=== PATIENT | male | born 1980 | race American Indian/Alaskan Native ===

== ENCOUNTER 2017-06-20 09:54 | Emergency (ER) | payer OTHER ==
[2017-06-20 10:12] VITALS: BP 129/75
[2017-06-20] MEDS ORDERED: MOTRIN PO ONE (11:12)
--- NOTE | 2017-06-20 11:19 | Emergency Department Report ---
ED Lower Extremity HPI - General Chief Complaint: Extremity Injury, Lower Stated Complaint: RIGHT LOWER LEG PAIN Time Seen by Provider: 06/20/17 11:12 Source: patient Mode of arrival: Ambulatory Limitations: No Limitations - History of Present Illness Initial Comments: This is a 36-year-old male nontoxic, well nourished in appearance, no acute signs of distress presents to the ED with c/o of right ankle pain 4 days. Patient state he was walking up the stairs and believes he twisted ankle and heard a popping sensation and believes that his Achilles tendon has been injured. Patient denies any decreased range of motion, joint swelling, fever, chills, nausea, vomiting, headache or stiff neck. Patient denies any chest pain or shortness of breath. Patient denies any allergies or significant past medical history. MD Complaint: ankle injury -: days(s) (4) Injury: Ankle: Right Type of Injury: inversion Place: street/outdoors Severity: mild Severity scale (0 -10): 8 Improves With: immobilization Worsens With: movement, palpation Associated Symptoms: able to partially bear weight, ambulatory. denies: snap/ pop sensation, swelling, numbness, tingling, unable to bear weight - Related Data Previous Rx's Medication Instructions Recorded Last Taken Type Ibuprofen [Motrin] 600 mg PO Q8H PRN #30 tablet 06/20/17 Unknown Rx Allergies Allergy/AdvReac Type Severity Reaction Status Date / Time No Known Allergies Allergy Unverified 06/20/17 10:09 ED Review of Systems ROS: Stated complaint: RIGHT LOWER LEG PAIN Other details as noted in HPI Constitutional: denies: chills, fever Eyes: denies: eye pain, eye discharge, vision change ENT: denies: ear pain, throat pain Respiratory: denies: cough, shortness of breath, wheezing Cardiovascular: denies: chest pain, palpitations Endocrine: no symptoms reported Gastrointestinal: denies: abdominal pain, nausea, diarrhea Genitourinary: denies: urgency, dysuria Musculoskeletal: arthralgia. denies: back pain, joint swelling Skin: denies: rash, lesions Neurological: denies: headache, weakness, paresthesias Psychiatric: denies: anxiety, depression Hematological/Lymphatic: denies: easy bleeding, easy bruising ED Past Medical Hx - Past Medical History Previous Medical History?: No - Surgical History Past Surgical History?: Yes Hx Appendectomy: Yes Additional Surgical History: Left knee surgery, Fatty tumors removed from head - Social History Smoking Status: Never Smoker Substance Use Type: Alcohol - Medications Home Medications: Home Medications Medication Instructions Recorded Confirmed Last Taken Type Ibuprofen [Motrin] 600 mg PO Q8H PRN #30 tablet 06/20/17 Unknown Rx ED Physical Exam - General Limitations: No Limitations General appearance: alert, in no apparent distress - Head Head exam: Present: atraumatic, normocephalic - Eye Eye exam: Present: normal appearance Pupils: Present: normal accommodation - ENT ENT exam: Present: normal exam, mucous membranes moist - Neck Neck exam: Present: normal inspection, full ROM - Respiratory Respiratory exam: Present: normal lung sounds bilaterally. Absent: respiratory distress, wheezes, rales, rhonchi, stridor - Cardiovascular Cardiovascular Exam: Present: regular rate, normal rhythm, normal heart sounds. Absent: bradycardia, tachycardia, irregular rhythm, systolic murmur, diastolic murmur, rubs, gallop - GI/Abdominal GI/Abdominal exam: Present: soft, normal bowel sounds - Rectal Rectal exam: Present: deferred - Extremities Exam Extremities exam: Present: normal inspection, full ROM, tenderness, normal capillary refill. Absent: pedal edema, joint swelling, calf tenderness - Expanded Lower Extremity Exam Right Hip exam: Present: normal inspection, full ROM Upper Leg exam: Present: normal inspection, full ROM Knee exam: Present: normal inspection, full ROM, full knee extension Lower Leg exam: Present: normal inspection, full ROM. Absent: Janett's sign Ankle exam: Present: normal inspection, full ROM, tenderness. Absent: swelling , abrasion, laceration, ecchymosis, deformity, crepidus, dislocation, erythema, anterior draw sign Foot/Toe exam: Present: normal inspection, full ROM. Absent: tenderness, swelling, abrasion, laceration, ecchymosis, deformity, crepidus, dislocation, erythema, amputation, puncture wound, foreign body, calcaneal tenderness, tenderness at base of 5th metatarsal, nail avulsion, subungual hematoma Neuro vascular tendon exam: Present: no vascular compromise. Absent: pulse deficit, abnormal cap refill, motor deficit, sensory deficit, tendon deficit, extremity cold to touch, pallor, abnormal 2-point discrimination, decreased fine /light touch, foot drop, peroneal nerve deficit, significant pain with passive ROM of distal joint Gait: Positive: observed and limited by pain - Back Exam Back exam: Present: normal inspection, full ROM - Neurological Exam Neurological exam: Present: alert, oriented X3, normal gait - Psychiatric Psychiatric exam: Present: normal affect, normal mood - Skin Skin exam: Present: warm, dry, intact, normal color. Absent: rash - Other Other exam information: Negative Philippe test. ED Course Vital Signs 06/20/17 10:09 Temperature 97.8 F Pulse Rate 68 Respiratory 18 Rate Blood Pressure 129/75 O2 Sat by Pulse 97 Oximetry - Reevaluation(s) Reevaluation #1: 06/20/17 11:16 Patient is speaking in full sentences with no signs of distress noted. ED Lower Extremity MDM - Medical Decision Making This is a 36-year-old male that presents with left ankle sprain. Patient is stable and was examined by me. Negative Philippe test. Normal range of motion. Upon examination there is no indication of Achilles tendon injury. An x-ray has been obtained and dictated by the radiologist. Patient is notified of the x-ray report with no questions noted by the patient. Patient received ankle stirrup and crutches. Crutches has been educated by RN headache use it. Patient also received Motrin in the ED. Patient was educated on rice therapy. Patient was referred to Follow-up with a orthopedic doctor in 3-5 days or if symptoms worsen and continue return to emergency room as soon as possible. At time of discharge, the patient does not seem toxic or ill in appearance. No acute signs of distress noted. Patient agrees to discharge treatment plan of care. No further questions noted by the patient. Critical care attestation.: If time is entered above; I have spent that time in minutes in the direct care of this critically ill patient, excluding procedure time. ED Disposition Clinical Impression: Right ankle sprain Qualifiers: Encounter type: initial encounter Involved ligament of ankle: unspecified ligament Qualified Code(s): S93.401A - Sprain of unspecified ligament of right ankle, initial encounter Disposition: TO HOME OR SELFCARE Is pt being admited?: No Does the pt Need Aspirin: No Condition: Stable Instructions: Ankle Sprain (ED), Ankle Stirrup Splint (ED), Crutch Instructions (ED), RICE Therapy (ED), Ibuprofen (By mouth) Additional Instructions: Follow-up with a orthopedic doctor in 3-5 days or if symptoms worsen and continue return to emergency room as soon as possible. Prescriptions: Ibuprofen [Motrin] 600 mg PO Q8H PRN #30 tablet PRN Reason: Pain Referrals: PRIMARY CARE, [Primary Care Provider] - 3-5 Days MINERVA SOLER MD [Staff Physician] - 3-5 Days [facility] [Outside] - 3-5 Days [facility] [Outside] - 3-5 Days Forms: Work/School Release Form(ED)
--- NOTE | 2017-06-20 11:46 | XRay Report ---
RIGHT ANKLE, 3 views: History: right ankle pain. Bone mineralization is normal. No acute osseous abnormality or joint pathology is identified. The soft tissues are unremarkable. IMPRESSION: No acute injury appreciated.
== END 2017-06-20 12:12 | disposition home or self-care (01) ==
LOC: ED 09:54
DX: S93.401A Sprain of unspecified ligament of right ankle, initial encounter (principal); X58.XXXA Exposure to other specified factors, initial encounter; Y93.89 Activity, other specified; Y92.89 Other specified places as the place of occurrence of the external cause; Y99.8 Other external cause status
CPT/HCPCS: 99283

== ENCOUNTER 2017-07-03 07:36 | Emergency (ER) | payer MEDICARE, OTHER ==
--- NOTE | 2017-07-03 10:30 | Emergency Department Report ---
ED Lower Extremity HPI - General Chief Complaint: Extremity Injury, Lower Stated Complaint: LEFT FOOT PAIN Time Seen by Provider: 07/03/17 08:09 Source: patient Mode of arrival: Ambulatory Limitations: No Limitations - History of Present Illness Initial Comments: Patient reports that he injured his left foot and ankle while he was walking that he twisted 5 days ago. He said his ankle is swollen and even though the swelling is reduced in if still painful and now his left foot is swollen. Patient said his foot is broken and he just knows it. Pain is 7 out of 10 achy and worse with walking or movement better with resting. He said he took Motrin for pain but it didn't help and he needs something stronger. Denies any numbness or tingling to her extremities. Denies any fall MD Complaint: ankle injury, foot injury Onset/Timin -: days(s) Injury: Ankle: Left (pain and swelling from injury), Foot: Left (pain and swelling from injury) Type of Injury: inversion Place: street/outdoors Severity: severe Severity scale (0 -10): 7 Improves With: NSAID Worsens With: weight bearing, movement, palpation Context: walking Associated Symptoms: swelling, ambulatory. denies: snap/pop sensation, numbness , tingling Treatments Prior to Arrival: NSAIDS - Related Data Previous Rx's Medication Instructions Recorded Last Taken Type Acetaminophen/Codeine [Tylenol 1 tab PO Q6H PRN #12 tab 07/03/17 Unknown Rx /Codeine # 3 tab] Ibuprofen [Motrin 600 MG tab] 600 mg PO Q8H PRN #15 tablet 07/03/17 Unknown Rx Allergies Allergy/AdvReac Type Severity Reaction Status Date / Time No Known Allergies Allergy Verified 07/03/17 07:46 ED Review of Systems ROS: Stated complaint: LEFT FOOT PAIN Other details as noted in HPI Comment: All other systems reviewed and negative Constitutional: no symptoms reported Respiratory: no symptoms reported Cardiovascular: denies: chest pain, palpitations, dyspnea on exertion, edema, syncope, paroxysmal nocturnal dyspnea Gastrointestinal: denies: abdominal pain, nausea, vomiting, diarrhea, constipation Musculoskeletal: joint swelling, arthralgia. denies: back pain, myalgia Skin: denies: rash Neurological: denies: headache, numbness, paresthesias, confusion, abnormal gait , vertigo ED Past Medical Hx - Past Medical History Previous Medical History?: No - Surgical History Past Surgical History?: Yes Hx Appendectomy: Yes Additional Surgical History: Left knee surgery, Fatty tumors removed from head - Family History Family history: hypertension - Social History Smoking Status: Never Smoker Substance Use Type: None - Medications Home Medications: Home Medications Medication Instructions Recorded Confirmed Last Taken Type Acetaminophen/Codeine [Tylenol 1 tab PO Q6H PRN #12 tab 07/03/17 Unknown Rx /Codeine # 3 tab] Ibuprofen [Motrin 600 MG tab] 600 mg PO Q8H PRN #15 tablet 07/03/17 Unknown Rx ED Physical Exam - General Limitations: No Limitations General appearance: alert, in no apparent distress - Head Head exam: Present: atraumatic, normocephalic, normal inspection - Eye Eye exam: Present: normal appearance, PERRL, EOMI Pupils: Present: normal accommodation - ENT ENT exam: Present: normal exam, normal orophraynx, mucous membranes moist - Neck Neck exam: Present: normal inspection, meningismus, full ROM, other (no C-spine tenderness). Absent: tenderness, lymphadenopathy - Respiratory Respiratory exam: Present: normal lung sounds bilaterally. Absent: respiratory distress, chest wall tenderness - Cardiovascular Cardiovascular Exam: Present: regular rate, normal rhythm, normal heart sounds - Extremities Exam Extremities exam: Present: full ROM, tenderness (left outer ankle), normal capillary refill, joint swelling (left ankle), other (no clubbing, cyanosis. No edema. Patient with left outer ankle swelling and tenderness to palpate. No joint crepitus. No laceration, abrasions or contusion to extremities. No neurovascular compromise to extremities. +2 pulses in all extremities. +5 strength in all extremities). Absent: normal inspection, pedal edema, calf tenderness - Expanded Lower Extremity Exam Left Hip exam: Present: normal inspection, full ROM. Absent: tenderness, swelling, abrasion, laceration, ecchymosis, deformity, crepidus, dislocation, erythema, external rotation, internal rotation, shortening, pelvic stability Upper Leg exam: Present: normal inspection, full ROM. Absent: tenderness, swelling, abrasion, laceration, ecchymosis, deformity, crepidus, dislocation, erythema Knee exam: Present: normal inspection, full ROM, full knee extension. Absent: tenderness, swelling, abrasion, laceration, ecchymosis, deformity, crepidus, dislocation, erythema, effusion, pain w/ pronation/supination, posterior draw sign, pain/laxity with varus Lower Leg exam: Present: normal inspection, full ROM. Absent: tenderness, swelling, abrasion, laceration, ecchymosis, deformity, crepidus, dislocation, erythema, palpable cord, Janett's sign Ankle exam: Present: full ROM, tenderness, swelling. Absent: normal inspection , abrasion, laceration, ecchymosis, deformity, crepidus, dislocation, erythema Foot/Toe exam: Present: normal inspection, full ROM. Absent: tenderness, swelling, abrasion, laceration, ecchymosis, deformity, dislocation, erythema, amputation, puncture wound, foreign body, calcaneal tenderness, tenderness at base of 5th metatarsal, nail avulsion Neuro vascular tendon exam: Present: no vascular compromise. Absent: pulse deficit, abnormal cap refill, motor deficit, sensory deficit, tendon deficit, extremity cold to touch, pallor, abnormal 2-point discrimination, decreased fine /light touch, foot drop, peroneal nerve deficit, significant pain with passive ROM of distal joint Gait: Positive: observed and limited by pain - Back Exam Back exam: Present: normal inspection, full ROM, other (ambulates without any difficulties). Absent: tenderness, CVA tenderness (R), CVA tenderness (L), muscle spasm, paraspinal tenderness, vertebral tenderness - Neurological Exam Neurological exam: Present: alert, oriented X3, normal gait, reflexes normal. Absent: motor sensory deficit - Psychiatric Psychiatric exam: Present: normal affect, normal mood - Skin Skin exam: Present: warm, dry, intact, normal color. Absent: rash ED Course Vital Signs 07/03/17 07:46 Temperature 97.8 F Pulse Rate 76 Respiratory 18 Rate Blood Pressure 133/80 O2 Sat by Pulse 97 Oximetry - Reevaluation(s) Reevaluation #1: 07/03/17 13:02 Patient given Motrin 800 mg emergency room for pain she was not satisfied with that he is here by himself and I told them that I could only give him medication that does not alter his mental status because he is driving. - Orthopedic Splinting/Casting Injury #1 Side: left Lower Extremity Injury Location: ankle, foot Lower Extremity Immobilizer: stirrup splint Additional Comments: Good csmt ED Lower Extremity MDM - Radiology Data Radiology results: report reviewed X-ray of left ankle and foot without any acute fracture dislocation - Medical Decision Making ED course: She is status post left ankle and foot injury 5 days ago with complaints of pain. X-ray findings reported no acute fracture dislocation. Physical findings for tenderness and swelling to left ankle. Patient able ambulate. I discussed the x-ray results, diagnosis and treatment plan and I discussed with him that he needs to follow up with Dr. Irby who is orthopedic doctor due to left ankle sprain. Rice therapy explained. Patient was given Motrin 800 mg by mouth in emergency room. See procedure note for details and splinting. Discharged home with prescription for Tylenol No. 3 and Motrin. Critical care attestation.: If time is entered above; I have spent that time in minutes in the direct care of this critically ill patient, excluding procedure time. ED Disposition Clinical Impression: Arthralgia of multiple sites Mild sprain of left ankle Qualifiers: Encounter type: initial encounter Qualified Code(s): S93.402A - Sprain of unspecified ligament of left ankle, initial encounter Disposition: DC- TO HOME OR SELFCARE Is pt being admited?: No Does the pt Need Aspirin: No Condition: Stable Instructions: Ankle Stirrup Splint (ED), Ankle Sprain (ED), Ankle Exercises ( GEN), RICE Therapy (ED), Arthralgia (ED) Additional Instructions: Please follow up with primary care as recommended Increase fluid intake Take medication as prescribed and please do not drink or operate heavy machinery while taking Tylenol No. 3 causes drowsiness . please do not drive or operate heavy machinery while taking these medications. Referred to discharge instruction on ankle stirrup Referred to discharge instruction in Rice therapy. follow-up with orthopedic doctor as instructed. Prescriptions: Acetaminophen/Codeine [Tylenol /Codeine # 3 tab] 1 tab PO Q6H PRN #12 tab PRN Reason: moderate to severe pain Ibuprofen [Motrin 600 MG tab] 600 mg PO Q8H PRN #15 tablet PRN Reason: Pain Referrals: PRIMARY CARE, [Primary Care Provider] - 2-3 Days MINERVA IRBY MD [Staff Physician] - 2-3 Days Forms: Work/School Release Form(ED)
[2017-07-03] MEDS ORDERED: MOTRIN PO ONE (10:34)
--- NOTE | 2017-07-03 11:31 | XRay Report ---
Left ankle 3 views: History: Left ankle injury and pain swelling. Findings: No bony or articular abnormality. No fracture dislocation or periosteal reaction. Impression: No evidence of acute fracture.
--- NOTE | 2017-07-03 11:32 | XRay Report ---
Left foot 3 views: History: Foot injury. Findings: No bony or articular abnormality. No fracture dislocation or periosteal reaction. Impression: Essentially negative left foot.
[2017-07-03 13:06] VITALS: BP 126/81
== END 2017-07-03 13:33 | disposition home or self-care (01) ==
LOC: ED 07:36
DX: S93.402A Sprain of unspecified ligament of left ankle, initial encounter (principal); Z90.49 Acquired absence of other specified parts of digestive tract; X58.XXXA Exposure to other specified factors, initial encounter; Y93.89 Activity, other specified; Y92.89 Other specified places as the place of occurrence of the external cause; Y99.8 Other external cause status

== ENCOUNTER 2017-11-08 21:40 | Emergency (ER) | payer MEDICARE, OTHER ==
[2017-11-08 21:46] VITALS: BP 135/85
== END 2017-11-08 23:40 | disposition left against medical advice (07) ==
LOC: ED 21:40
DX: R07.0 Pain in throat (principal); Z53.21 Procedure and treatment not carried out due to patient leaving prior to being seen by health care provider
CPT/HCPCS: 87116; 87430

== ENCOUNTER 2018-03-20 16:21 | Emergency (ER) | payer MEDICARE, OTHER ==
[2018-03-20 16:37] VITALS: BP 130/82
--- NOTE | 2018-03-20 17:42 | XRay Report ---
FINAL REPORT EXAM: XR FOOT 3+V RT HISTORY: pain and swelling r/t injury TECHNIQUE: 3 views right foot PRIORS: None. FINDINGS: No fracture or dislocation identified. Joint spaces are within normal limits. No radiopaque foreign b liliana seen. No soft tissue abnormality identified. IMPRESSION: Negative foot series
--- NOTE | 2018-03-20 17:49 | Emergency Department Report ---
ED Lower Extremity HPI - General Chief Complaint: Extremity Injury, Lower Stated Complaint: (R) FOOT POSS BROKEN Time Seen by Provider: 03/20/18 17:04 Source: patient Mode of arrival: Ambulatory Limitations: No Limitations - History of Present Illness MD Complaint: foot injury -: Sudden, week(s) (1) Injury: Foot: Right Type of Injury: blunt (dropped or hit something on top of foot now pain with rom) Place: home Severity: mild Improves With: nothing Worsens With: weight bearing, movement, palpation Context: direct blow - Related Data Previous Rx's Medication Instructions Recorded Last Taken Type Acetaminophen/Codeine [Tylenol 1 tab PO Q6H PRN #12 tab 07/03/17 Unknown Rx /Codeine # 3 tab] Ibuprofen [Motrin 600 MG tab] 600 mg PO Q8H PRN #15 tablet 07/03/17 Unknown Rx Ketorolac [Toradol] 10 mg PO Q6H PRN #20 tablet 03/20/18 Unknown Rx Allergies Allergy/AdvReac Type Severity Reaction Status Date / Time No Known Allergies Allergy Verified 07/03/17 07:46 ED Review of Systems ROS: Stated complaint: (R) FOOT POSS BROKEN Other details as noted in HPI Constitutional: denies: chills, fever Eyes: denies: eye pain, eye discharge, vision change ENT: denies: ear pain, throat pain Respiratory: denies: cough, shortness of breath, wheezing Cardiovascular: denies: chest pain, palpitations Endocrine: no symptoms reported Gastrointestinal: denies: abdominal pain, nausea, diarrhea Genitourinary: denies: urgency, dysuria Musculoskeletal: denies: back pain, joint swelling, arthralgia Skin: denies: rash, lesions Neurological: denies: headache, weakness, paresthesias Psychiatric: denies: anxiety, depression Hematological/Lymphatic: denies: easy bleeding, easy bruising ED Past Medical Hx - Past Medical History Previous Medical History?: No Hx Psychiatric Treatment: Yes (PTSD) - Surgical History Hx Appendectomy: Yes Additional Surgical History: Left knee surgery, Fatty tumors removed from head - Social History Smoking Status: Never Smoker Substance Use Type: None - Medications Home Medications: Home Medications Medication Instructions Recorded Confirmed Last Taken Type Acetaminophen/Codeine [Tylenol 1 tab PO Q6H PRN #12 tab 07/03/17 Unknown Rx /Codeine # 3 tab] Ibuprofen [Motrin 600 MG tab] 600 mg PO Q8H PRN #15 tablet 07/03/17 Unknown Rx Ketorolac [Toradol] 10 mg PO Q6H PRN #20 tablet 03/20/18 Unknown Rx ED Physical Exam - General Limitations: No Limitations General appearance: alert, in no apparent distress - Head Head exam: Present: atraumatic, normocephalic - Eye Eye exam: Present: normal appearance - ENT ENT exam: Present: mucous membranes moist - Neck Neck exam: Present: normal inspection - Respiratory Respiratory exam: Present: normal lung sounds bilaterally. Absent: respiratory distress - Cardiovascular Cardiovascular Exam: Present: regular rate, normal rhythm. Absent: systolic murmur, diastolic murmur, rubs, gallop - GI/Abdominal GI/Abdominal exam: Present: soft, normal bowel sounds - Rectal Rectal exam: Present: deferred - Extremities Exam Extremities exam: Present: normal inspection, tenderness (to dorsum of foot at MTPJ 3rd adn 4th. no bruising or swelling. pulse 2+ and cap refill brisk. pain wtih rom) - Back Exam Back exam: Present: normal inspection - Neurological Exam Neurological exam: Present: alert, oriented X3 - Psychiatric Psychiatric exam: Present: normal affect, normal mood - Skin Skin exam: Present: warm, dry, intact, normal color. Absent: rash ED Course Vital Signs 03/20/18 16:35 Temperature 98.6 F Pulse Rate 86 Respiratory 16 Rate Blood Pressure 130/82 O2 Sat by Pulse 100 Oximetry Critical care attestation.: If time is entered above; I have spent that time in minutes in the direct care of this critically ill patient, excluding procedure time. ED Disposition Clinical Impression: Foot contusion Disposition: DC-01 TO HOME OR SELFCARE Is pt being admited?: No Does the pt Need Aspirin: No Condition: Stable Instructions: Foot Contusion (ED) Prescriptions: Ketorolac [Toradol] 10 mg PO Q6H PRN #20 tablet PRN Reason: Pain Referrals: PRIMARY CARE, [Primary Care Provider] - 3-5 Days [facility] [Provider Group] - 3-5 Days
== END 2018-03-20 17:53 | disposition home or self-care (01) ==
LOC: ED 16:21
DX: S90.31XA Contusion of right foot, initial encounter (principal); W20.8XXA Other cause of strike by thrown, projected or falling object, initial encounter; Y93.89 Activity, other specified; Y92.89 Other specified places as the place of occurrence of the external cause; Y99.8 Other external cause status